=== PATIENT | female | born 2000 | race Caucasian/White ===

== ENCOUNTER 2022-04-25 15:45 | Emergency (ER) | payer OTHER, SELFPAY ==
--- NOTE | ~2022-04-25 | XR_ITS ---
EXAMINATION: XR CHEST CLINICAL INFORMATION: Pneumonia COMPARISON: None TECHNIQUE: Frontal view of the chest was obtained. FINDINGS: No significant abnormality is noted involving the heart, lungs, mediastinum, bony thorax or soft tissues. XR/XR chest 1V IMPRESSION: Unremarkable examination.
[2022-04-25 16:12] VITALS: BP 126/84; PULSE 100; RESP 20; TEMP 36.3; O2SAT 99; BMI 24.5
--- NOTE | 2022-04-25 19:01 | PC.NURSE ---
pt a&ox3, reporting new sob starting 2 days ago with exertion, COVID + 8. no shortness of breath noted in room, RR even and unlabored.
--- NOTE | 2022-04-25 19:28 | ED.GENADULT ---
HPI - General Adult General Chief complaint: Upper Respiratory Symptoms Stated complaint: sob covid + on Friday Time Seen by Provider: 04/25/22 19:00 Source: patient Mode of arrival: ambulatory Limitations: no limitations History of Present Illness HPI narrative: 21-year-old female recently tested positive for COVID this past friday came to the ED for evaluation 1 episode of shortness of breath yesterday while folding clothes. Patient states since being diagnosed with COVID her O2 saturation has been 95% and above. Patient does have portable pulse ox at home. Patient denies any chest pain, pleurisy, leg swelling, calf pain, coughing blood, recent travel, recent surgery, or any control use. Patient denies any history of blood clots. Presently patient denies any symptoms. Patient is asymptomatic Related Data Previous Rx's Medication Instructions Recorded albuterol sulfate 90 mcg/actuation 2 puff inhalation Q4-6H PRN 04/25/22 aerosol inhaler shortness of breath or wheezing #8.5 grams prednisone 20 mg tablet 40 mg PO DAILY 5 days #10 tabs 04/25/22 Allergies Allergy/AdvReac Type Severity Reaction Status Date / Time No Known Allergies Allergy Verified 04/25/22 16:11 Review of Systems Review of Systems: Resolved episode of shortness of breath. Presently asymptomatic Yes all other systems are reviewed and are negative [facility] Social History Social History Advance Directives: No Advance Directives Information Provided: No Physical Exam ED Vital Signs: Vital Signs - 24 hr 04/25/22 16:12 Temperature 97.4 F Pulse Rate 100 Respiratory Rate 20 Blood Pressure 126/84 Pulse Oximetry 99 Oxygen Delivery Method Room Air BMI result Body Mass Index 24.5 Const General: cooperative, healthy appearing, comfortable, no acute distress, well developed, alert, awake and Physically active Orientation/consciousness: oriented to person, oriented to place, oriented to time and patient oriented x3 HENMT Head: Yes normal to inspection, Yes No palpable skull fracture present, Yes normocephalic, Yes atraumatic and No abrasion Eyes General: appearance normal, both eyes and all related structures Neck Neck: Yes normal visual inspection, Yes full ROM, Yes no lymphadenopathy, Yes no meningeal signs, Yes trachea midline, Yes supple, No anterior neck swelling and No tender Chest Chest palpation & inspection: normal inspection of the chest and normal palpation of entire chest wall Resp Effort & Inspection: normal respiratory effort and able to speak in complete sentences Auscultation: clear to auscultation bilaterally Cardio Jugular venous distension: no JVD Heart sounds: S1 normal heart sound present and S2 normal heart sound present GI Inspection: Yes normal to inspection and No abdominal wall ecchymosis Palpation (GI): Soft to palpation, not firm, nontender, no guarding and not rigid General: No CVA tenderness and Yes no CVA tenderness Back/Spine/Pelvis Back: no CVA tenderness, No CVA tenderness and No back tenderness Skin General skin exam: no rashes or lesions noted and elasticity normal Neuro General: oriented to person, oriented to place, oriented to time, patient oriented x3, gait normal, tone normal, moves all extremities, Normal light touch and pain sensation, no meningeal signs, no focal motor deficits and CN's II-XI intact bilaterally Extrem Other: Lower extremities negative for swelling, pitting edema, calf tenderness Psych Appearance: grossly normal, well kempt and not disheveled Course Course Course Narrative: Presently patient is asymptomatic. Patient denies any chest pain, shortness of breath, pleurisy, hemoptysis or any other concerning symptoms. Patient walked around the ER O2 saturation stayed above 97%. WIll send for chest xray. No further workup needed. Not suspecting any cardiac/NM/myocarditis/ Pumnory Embolus Reevaluation(s) Reevaluation #1: Chest x-ray is normal. Patient re-evaluated lungs are clear. Patient is asymptomatic. Patient denies any chest pain, shortness of breath, pleurisy, coughing up blood, leg swelling, calf pain, or dyspnea on exertion. O2 saturation 99% on ambulation. Due to history of asthma patient will be discharged with albuterol inhaler. Mother requests the patient to have it. Patient educated on symptoms of myocarditis, myocardial infarction, pneumonia, CHF, and pulmonary embolus and told to return to the ED if she has any of them. Time: 19:39 Medical Decision Making [facility] Narrative Medical decision making narrative: COVID Discharge Plan Discharge Clinical Impression: COVID-19 Patient Disposition: Home, Self-Care Instructions: COVID-19 (Coronavirus Disease 2019) (ED) Additional Instructions: Return to the ED immediately for any chest pain, shortness of breath, chest pain on inspiration, leg swelling, calf pain, coughing up blood, weakness, dizziness, O2 saturation below 94%, or any other concerning symptoms. Contineu monitoring oxygen saturation level with portable pulse ox. Please follow-up with primary care provider Prescriptions: New albuterol sulfate 90 mcg/actuation HFA aerosol inhaler 2 puff inhalation Q4-6H PRN (Reason: shortness of breath or wheezing) Qty: 8.5 0RF prednisone 20 mg tablet 40 mg PO DAILY 5 Days Qty: 10 0RF Stand Alone Forms: Work/School Release Print Language: German
== END 2022-04-25 20:44 | disposition home or self-care (01) ==
PROVIDERS: Emergency Provider Emergency Medicine
DX: U07.1 COVID-19 (principal)
CPT/HCPCS: 71045; 99283